=== PATIENT | male | born 1975 | race African-American/Black ===

== ENCOUNTER 2016-07-19 10:34 | Emergency (ER) | payer OTHER | END 2016-07-19 10:51 | disposition home or self-care (01) | LOC: BURERS 10:34 | DX: L03.211 Cellulitis of face (principal); I12.0 Hypertensive chronic kidney disease with stage 5 chronic kidney disease or end stage renal disease; N18.6 End stage renal disease; Z79.899 Other long term (current) drug therapy | CPT/HCPCS: 99283 ==

== ENCOUNTER 2016-07-21 10:30 | Emergency (ER) | payer OTHER ==
[2016-07-21] MEDS ORDERED: Ketorolac Tromethamine 60 MG/2 ML VIAL ONE (10:53)
[2016-07-21] MEDS ORDERED: Lorazepam 2 MG/ML VIAL ONE (11:14)
== END 2016-07-21 11:37 | disposition home or self-care (01) ==
LOC: BURERS 10:30
DX: L02.01 Cutaneous abscess of face (principal); I12.0 Hypertensive chronic kidney disease with stage 5 chronic kidney disease or end stage renal disease; N18.6 End stage renal disease
CPT/HCPCS: 10060; 96372; 96374; J1885; J2060

== ENCOUNTER 2016-11-20 13:23 | Emergency (ER) | payer OTHER | END 2016-11-20 14:00 | disposition home or self-care (01) | LOC: BURERS 13:23 | DX: L73.9 Follicular disorder, unspecified (principal); I12.0 Hypertensive chronic kidney disease with stage 5 chronic kidney disease or end stage renal disease; N18.6 End stage renal disease; Z99.2 Dependence on renal dialysis; Z79.899 Other long term (current) drug therapy | CPT/HCPCS: 99282 ==

== ENCOUNTER 2018-07-02 02:55 | Emergency (ER) | payer OTHER ==
[2018-07-02] MEDS ORDERED: Cephalexin 500 MG CAP ONE (03:30)
[2018-07-02] MEDS ORDERED: Doxycycline 100 MG CAP ONE (03:30)
== END 2018-07-02 03:30 | disposition home or self-care (01) ==
LOC: BURERS 02:55
DX: L73.9 Follicular disorder, unspecified (principal); I12.0 Hypertensive chronic kidney disease with stage 5 chronic kidney disease or end stage renal disease; N18.6 End stage renal disease; Z79.899 Other long term (current) drug therapy
CPT/HCPCS: 99282

== ENCOUNTER 2020-07-21 08:20 | Emergency (ER) | payer OTHER | END 2020-07-21 09:36 | disposition home or self-care (01) | LOC: BURERS 08:20 | DX: K60.2 Anal fissure, unspecified (principal); I12.0 Hypertensive chronic kidney disease with stage 5 chronic kidney disease or end stage renal disease; N18.6 End stage renal disease; Z99.2 Dependence on renal dialysis | CPT/HCPCS: 99283 ==

== ENCOUNTER 2020-07-23 06:35 | Emergency (ER) | payer OTHER ==
[2020-07-23] MEDS ORDERED: Fleet Enema 133 ML BOT ONE ×2 (07:12→07:32)
== END 2020-07-23 07:49 | disposition home or self-care (01) ==
LOC: BURERS 06:35
DX: K59.00 Constipation, unspecified (principal); I12.0 Hypertensive chronic kidney disease with stage 5 chronic kidney disease or end stage renal disease; N18.6 End stage renal disease; Z99.2 Dependence on renal dialysis
CPT/HCPCS: 99283

== ENCOUNTER 2024-12-17 12:42 | Emergency (ER) | payer OTHER ==
[2024-12-17 13:31] LABS: Hematocrit 24.7 % (42.0-52.0); Hemoglobin 8.7 g/dL (14.0-18.0); Mean Corpuscular Hemoglobin 31.0 pg (27.0-31.0); Mean Corpuscular Volume 88.6 fl (78.0-98.0); Platelet Count 119 10x3/uL (130-400); Red Blood Cell (RBC) Count 2.79 mill/uL (4.70-6.10); White Blood Cell (WBC) Count 6.1 10x3/uL (4.8-10.8)
[2024-12-17 13:43] LABS: ALT (SGPT) 17 U/L (Less than 45); AST (SGOT) 16 U/L (11-34); Albumin 3.9 g/dL (3.1-4.5); Alkaline Phosphatase 86 U/L (40-110); Anion Gap 21 mmol/L (10-20); BUN (Urea Nitrogen) 64 mg/dL (8.9-20.6); Bilirubin, Total 0.4 mg/dL (0.3-1.2); Calc. Creatinine Clearance 0 mL/min (70-130); Calcium 8.9 mg/dL (7.8-10.44); Carbon Dioxide 25 mmol/L (22-29); Chloride 104 mmol/L (98-107); Globulin 3.9 g/dL (2.4-3.5); Glucose 114 mg/dL (70-105); Potassium 5.3 mmol/L (3.5-5.1); Sodium 145 mmol/L (136-145)
[2024-12-17 13:56] LABS: MDiff Complete? YES
== END 2024-12-17 13:58 | disposition home or self-care (01) ==
LOC: BURERS 12:42
DX: R20.2 Paresthesia of skin (principal); I12.9 Hypertensive chronic kidney disease with stage 1 through stage 4 chronic kidney disease, or unspecified chronic kidney disease; N18.6 End stage renal disease; Z99.2 Dependence on renal dialysis
CPT/HCPCS: 36415; 80053; 85025; 85379; 99284

== ENCOUNTER 2025-02-22 23:34 | Emergency (ER) | payer OTHER | END 2025-02-23 00:54 | disposition home or self-care (01) | LOC: BURERS 23:34 | DX: F41.1 Generalized anxiety disorder (principal); F32.9 Major depressive disorder, single episode, unspecified; I10 Essential (primary) hypertension; I25.2 Old myocardial infarction; E66.01 Morbid (severe) obesity due to excess calories | CPT/HCPCS: 99283 ==